=== PATIENT | male | born 1965 | race Caucasian/White ===

== ENCOUNTER 2017-01-05 07:57 | Inpatient (IN) | payer MEDICARE ==
[~2017-01-05] VITALS: Ht 182.9 cm; Wt 123.4 kg
[2017-01-05] MEDS ORDERED: KEPPRA500 MG PO (08:09)
[2017-01-05] MEDS ORDERED: ATIVAN0.5 MG PO (08:10)
[2017-01-05] MEDS ORDERED: ATIVAN 1MG TABLE1 MG PO (08:11)
[2017-01-05] MEDS ORDERED: MIDODRINE HCL5 MG PO (08:12)
[2017-01-05] MEDS ORDERED: PYRIDIUM200 MG PO (08:12)
[2017-01-05] MEDS ORDERED: VITAMIN C 500500 MG PO (08:13)
[2017-01-05] MEDS ORDERED: LYRICA200 MG PO (08:14)
[2017-01-05] MEDS ORDERED: LIORESAL TAB 1010 MG PO (08:14)
[2017-01-05] MEDS ORDERED: BISACODYL10 MG PR (08:15)
[2017-01-05] MEDS ORDERED: MOVANTIK25 MG PO (08:16)
[2017-01-05] MEDS ORDERED: OXYCODONE HCL15 MG PO (08:16)
[2017-01-05] MEDS ORDERED: FISH OIL 1,0001 EAC4 PO (08:17)
[2017-01-05] MEDS ORDERED: SENNA LAX8.6 MG PO (08:18)
[2017-01-05] MEDS ORDERED: CRANBERRY CONC500 MG PO (08:19)
[2017-01-05] MEDS ORDERED: FOSAMAX70 MG PO (08:19)
[2017-01-05] MEDS ORDERED: FEOSOL325 MG PO (08:20)
[2017-01-05] MEDS ORDERED: FLORASTOR250 MG PO (08:21)
[2017-01-05] MEDS ORDERED: CLARITIN10 M2 PO (08:23)
[2017-01-05] MEDS ORDERED: FOLIC ACID0.4 MG PO (08:23)
[2017-01-05] MEDS ORDERED: MELATONIN3 MG PO (08:24)
[2017-01-05] MEDS ORDERED: MULTIVITAMINS1 EAC1 PO (08:26)
[2017-01-05] MEDS ORDERED: MIRALAX PACK 171 PKT PO (08:32)
[2017-01-05] MEDS ORDERED: PROTONIX 40 MG40 M1 PO (08:32)
[2017-01-05] MEDS ORDERED: VITAMIN D1000 UNIT PO (08:33)
[2017-01-05] MEDS ORDERED: PRAVACHOL40 MG PO (08:33)
[2017-01-05] MEDS ORDERED: CALCIUM 600 +1 EAC3 PO (08:35)
[2017-01-05] MEDS ORDERED: COLACE 100MG C100 MG PO (08:36)
[2017-01-05] MEDS ORDERED: DEPAKOTE SPRIN125 M1 PO (08:36)
[2017-01-05] MEDS ORDERED: CYMBALTA60 MG PO (08:37)
[2017-01-05] MEDS ORDERED: ELIQUIS2.5 MG PO (08:37)
[2017-01-05 11:35] LABS: HEMOGLOBIN 12.7 gm/dl (14.0-17.5); RED BLOOD COUNT 4.33 M/UL (4.20-5.50); WHITE BLOOD COUNT 22.2 K/UL (4.5-11.0)
[2017-01-06 03:35] LABS: HEMOGLOBIN 10.8 gm/dl (14.0-17.5)
[2017-01-06 03:43] LABS: RED BLOOD COUNT 3.67 M/UL (4.20-5.50)
[2017-01-06 03:55] LABS: BUN/CREATININE RATIO 15 (0-10)
[2017-01-06 08:45] LABS: ACINETOBACTER BAUMANNII Not Detected (Negative); CANDIDA ALBICANS Not Detected (Negative); CANDIDA KRUSEI Not Detected (Negative); CANDIDA TROPICALIS Not Detected (Negative); ENTEROCOCCUS Not Detected (Negative); ESCHERICHIA COLI Not Detected (Negative); HAEMOPHILUS INFLUENZAE Not Detected (Negative); KLEBSIELLA OXYTOCA Not Detected (Negative); KLEBSIELLA PNEUMONIAE Not Detected (Negative); KPC-CARBAPENEM-RESISTANCE GENE Not Detected (Negative); PROTEUS Not Detected (Negative); PSEUDOMONAS AERUGINOSA Not Detected (Negative); SERRATIA MARCESANS Not Detected (Negative); STAPHYLOCOCCUS AUREUS Not Detected (Negative); STREP AGALACTIAE (GROUP B) Not Detected (Negative); STREP PYOGENES (GROUP A) Not Detected (Negative); STREPTOCOCCUS Not Detected (Negative); vanA/B (VANCOMYCIN RESIST GENE Not Detected (Negative)
[2017-01-06 10:01] LABS: STAPHYLOCOCCUS DETECTED (Negative); mecA (METHICILLIN RESIST GENE DETECTED (Negative)
[2017-01-07 04:06] LABS: HEMOGLOBIN 9.9 gm/dl (14.0-17.5); RED BLOOD COUNT 3.39 M/UL (4.20-5.50)
[2017-01-07 04:07] LABS: WHITE BLOOD COUNT 18.8 K/UL (4.5-11.0)
[2017-01-07 04:31] LABS: BUN/CREATININE RATIO 16 (0-10)
[2017-01-07 12:23] LABS: WHITE BLOOD COUNT 25.8 K/UL (4.5-11.0)
[2017-01-08 03:11] LABS: RED BLOOD COUNT 3.4 M/UL (4.20-5.50); WHITE BLOOD COUNT 14.4 K/UL (4.5-11.0)
[2017-01-08 03:45] LABS: BUN/CREATININE RATIO 11 (0-10)
[2017-01-09 04:28] LABS: RED BLOOD COUNT 3.3 M/UL (4.20-5.50); WHITE BLOOD COUNT 14.3 K/UL (4.5-11.0)
[2017-01-09 04:33] LABS: BUN/CREATININE RATIO 10 (0-10)
[2017-01-09 09:18] LABS: ACINETOBACTER BAUMANNII Not Detected (Negative); CANDIDA ALBICANS Not Detected (Negative); CANDIDA KRUSEI Not Detected (Negative); CANDIDA TROPICALIS Not Detected (Negative); ESCHERICHIA COLI Not Detected (Negative); HAEMOPHILUS INFLUENZAE Not Detected (Negative); KLEBSIELLA OXYTOCA Not Detected (Negative); KLEBSIELLA PNEUMONIAE Not Detected (Negative); KPC-CARBAPENEM-RESISTANCE GENE Not Detected (Negative); PROTEUS Not Detected (Negative); PSEUDOMONAS AERUGINOSA Not Detected (Negative); SERRATIA MARCESANS Not Detected (Negative); STAPHYLOCOCCUS Not Detected (Negative); STAPHYLOCOCCUS AUREUS Not Detected (Negative); STREP AGALACTIAE (GROUP B) Not Detected (Negative); STREP PYOGENES (GROUP A) Not Detected (Negative); STREPTOCOCCUS Not Detected (Negative); mecA (METHICILLIN RESIST GENE Not Detected (Negative); vanA/B (VANCOMYCIN RESIST GENE Not Detected (Negative)
[2017-01-09 10:34] LABS: ENTEROCOCCUS DETECTED (Negative)
[2017-01-10 06:21] LABS: HEMOGLOBIN 10.5 gm/dl (14.0-17.5); RED BLOOD COUNT 3.54 M/UL (4.20-5.50); WHITE BLOOD COUNT 15.1 K/UL (4.5-11.0)
[2017-01-10 06:37] LABS: BUN/CREATININE RATIO 10 (0-10)
[2017-01-11 06:16] LABS: HEMOGLOBIN 9.9 gm/dl (14.0-17.5); RED BLOOD COUNT 3.32 M/UL (4.20-5.50); WHITE BLOOD COUNT 15.2 K/UL (4.5-11.0)
[2017-01-11 06:38] LABS: BUN/CREATININE RATIO 11 (0-10)
[2017-01-12 05:03] LABS: HEMOGLOBIN 9.7 gm/dl (14.0-17.5); RED BLOOD COUNT 3.29 M/UL (4.20-5.50); WHITE BLOOD COUNT 13.7 K/UL (4.5-11.0)
[2017-01-12 05:22] LABS: BUN/CREATININE RATIO 16 (0-10)
[2017-01-13 06:02] LABS: HEMOGLOBIN 9.7 gm/dl (14.0-17.5); RED BLOOD COUNT 3.28 M/UL (4.20-5.50); WHITE BLOOD COUNT 12.1 K/UL (4.5-11.0)
[2017-01-14 06:12] LABS: HEMOGLOBIN 9.3 gm/dl (14.0-17.5); RED BLOOD COUNT 3.17 M/UL (4.20-5.50); WHITE BLOOD COUNT 11.2 K/UL (4.5-11.0)
== END 2017-01-14 18:06 | DRG 698 ==
LOC: CCU 07:57 → MED SURG 4 07:57 → CCU 01-07 06:00 → MED SURG 4 01-08 13:21
PROVIDERS: Internal Medicine; Internal Medicine Infectious Disease; Physician Assistant; ADMIT Internal Medicine
DX: T83.518A Infection and inflammatory reaction due to other urinary catheter, initial encounter (principal); A41.9 Sepsis, unspecified organism; R65.21 Severe sepsis with septic shock; G92 Toxic encephalopathy; N30.00 Acute cystitis without hematuria; N17.9 Acute kidney failure, unspecified; G82.20 Paraplegia, unspecified; Y73.1 Therapeutic (nonsurgical) and rehabilitative gastroenterology and urology devices associated with adverse incidents; I12.9 Hypertensive chronic kidney disease with stage 1 through stage 4 chronic kidney disease, or unspecified chronic kidney disease; N18.9 Chronic kidney disease, unspecified; D50.9 Iron deficiency anemia, unspecified; E87.5 Hyperkalemia; G40.909 Epilepsy, unspecified, not intractable, without status epilepticus; J44.9 Chronic obstructive pulmonary disease, unspecified; Z68.36 Body mass index [BMI] 36.0-36.9, adult; S24.109S Unspecified injury at unspecified level of thoracic spinal cord, sequela; W34.00XS Accidental discharge from unspecified firearms or gun, sequela; E78.5 Hyperlipidemia, unspecified; K21.9 Gastro-esophageal reflux disease without esophagitis; L89.152 Pressure ulcer of sacral region, stage 2; E66.01 Morbid (severe) obesity due to excess calories; F32.9 Major depressive disorder, single episode, unspecified; F41.9 Anxiety disorder, unspecified; Z87.440 Personal history of urinary (tract) infections; Z86.711 Personal history of pulmonary embolism; Z86.718 Personal history of other venous thrombosis and embolism; Z74.01 Bed confinement status; Z79.01 Long term (current) use of anticoagulants; Z79.891 Long term (current) use of opiate analgesic; Z79.899 Other long term (current) drug therapy; Z88.3 Allergy status to other anti-infective agents; Z88.5 Allergy status to narcotic agent; Z88.0 Allergy status to penicillin; Z98.890 Other specified postprocedural states
CPT/HCPCS: ECHO; 36415; 36600; 71010; 80048; 80076; 80202; 80299; 81001; 82803; 83605; 83735; 85025; 85027; 86140; 87040; 87077; 87086; 87150; 87186; 93306; C1751; J0360; J1956; J2060; J2405; J3370; J7030; J7050; J7070